=== PATIENT | female | born 1995 | race Two or more races ===

== ENCOUNTER 2017-01-31 10:41 | Emergency (ER) | payer OTHER ==
[~2017-01-31] VITALS: Ht 167.6 cm; Wt 78.6 kg
[2017-01-31] MEDS ORDERED: SODIUM CHLORIDE 0.9% 1,000 ML IV ONE (11:05)
[2017-01-31 11:30] LABS: HEMATOCRIT 43.2 % (34.6-47.8); HEMOGLOBIN 14.6 g/dL (11.7-16.4); WHITE BLOOD COUNT 9.1 x10^3/uL (3.4-10)
[2017-01-31] MEDS ORDERED: SODIUM CHLORIDE FLUSH 10ML SYR IVF ONE (11:30)
[2017-01-31] MEDS ORDERED: SODIUM CHLORIDE 0.9% 1,000ML IVBOLUS ONE (11:30)
[2017-01-31 11:40] LABS: DAU SCREEN DISCLAIMER
[2017-01-31 11:41] LABS: BLOOD UREA NITROGEN 11 mg/dL (7-18)
[2017-01-31 11:57] VITALS: BP 138/86
[2017-01-31] MEDS ORDERED: PALI273S INJ (12:42)
[2017-01-31] MEDS ORDERED: BENZ2AMP4 INJ (12:42)
[2017-01-31] MEDS ORDERED: HALO5VIA2 INJ (12:43)
[2017-01-31] MEDS ORDERED: DIVA250T4 PO (12:43)
== END 2017-01-31 15:12 | disposition home or self-care (01) ==
LOC: ED 12:36
DX: F29 Unspecified psychosis not due to a substance or known physiological condition (principal); F20.9 Schizophrenia, unspecified; F19.10 Other psychoactive substance abuse, uncomplicated
CPT/HCPCS: 36415; 80048; 80307; 81001; 82040; 84703; 85025; 87077; 87086; 87186; 96360; 96361; 99285; J7030; G0479

== ENCOUNTER 2019-01-24 09:28 | Emergency (ER) | payer OTHER, MEDICAID ==
[~2019-01-24] VITALS: Ht 170.2 cm; Wt 100.0 kg
[~2019-01-24 09:28] MED LIST: BENZ2AMP4 INJ; DIVA250T4 PO; HALO5VIA2 INJ; PALI273S INJ
--- NOTE | 2019-01-24 09:35 | NUR ---
THIS IS A 23 YEAR OLD FEMALE WHO WAS BIB BY AMBULANCE FROM [facility] FOR FOR MEDICAL CLEARANCE. PT WAS A [facility] YESTERDAY ED FOR SAME. PT FALLS ON FLOOR AND HITS SELF IN HEAD. MULTIPLE BRUISES AND SCABS ON FACE. PT ALERT WILL NO SPEAK. MENTAL HEALTH ASSISTANE AT BS FROM [facility].
--- NOTE | 2019-01-24 09:37 | NUR ---
PT PLACED IN 4 POINT LEATHER RESTRAINTS DUE TO HITTING SELF AND ATTEMPTING TO FALL ON FLOOR.
--- NOTE | 2019-01-24 10:28 | NUR ---
PT TO CT SCAN WITH 4 ASSIST PT REMAINED ON BOARD, NOT ATTEMPTING TO GET OFF. PT BACK TO BED.
[2019-01-24] MEDS ORDERED: MUPIROCIN OINT 2%, 1 GM APPL. TP STA (11:07)
[2019-01-24] MEDS ORDERED: NEOSPORIN OINT. PKT 1 PACKET ONE (11:22)
--- NOTE | 2019-01-24 11:50 | NUR ---
PT MEDICALLY CLEARED, AWAITING MD AUTHORIZATION TO TAKE BACK PATIENT AT [facility]. PT TOOK SIPS OF WATER FOR THIS RN.
[2019-01-24 11:51] VITALS: BP 114/67
--- NOTE | 2019-01-24 11:55 | NUR ---
TP RN: pt accepted by MD Cordon at [facility], packet faxed to [facility] for transport
--- NOTE | 2019-01-24 12:16 | NUR ---
TP RN: AUDIE called & info provided for authorization for transport back to [facility], [facility] has already been notified. Awaiting call back from [facility] w/ ETA for transport. Pt has been accepted back to [facility] by MD Cordon
--- NOTE | 2019-01-24 12:41 | NUR ---
PT SLEEPING, RESP EVEN AND UNLABORED. MENTAL HEALTH ASSISTANCE AT BS
--- NOTE | 2019-01-24 13:21 | NUR ---
RECEIVED A CALL FROM [facility] FROM A DEEPTI, SHE STATES SHE DENIES PATIENT COMING BACK TO [facility]. EXPLAINED THAT THROUGHPUT RECEIVED ACCEPTING MD, AND REPORT GIVEN. SHE STATES, "THIS SOUNDS LIKE [facility]" AND HUNG UP ON THIS RN. EXPLAINED TO 3D ARTIST OF ABOVE
--- NOTE | 2019-01-24 13:32 | NUR ---
LATE ENTRY: 1115 REPORT GIVEN TO SIMA TATUM, PLAN OF CARE DISCUSSED. SHE STATES, "DONT SEND PATIENT UNTIL I GET A MD".
== END 2019-01-24 13:23 ==
LOC: ED 10:47
DX: S00.01XA Abrasion of scalp, initial encounter (principal); S00.81XA Abrasion of other part of head, initial encounter; S40.212A Abrasion of left shoulder, initial encounter; F98.4 Stereotyped movement disorders; X58.XXXA Exposure to other specified factors, initial encounter; Y93.89 Activity, other specified; Y92.89 Other specified places as the place of occurrence of the external cause; Y99.8 Other external cause status
CPT/HCPCS: 70450; 99285

== ENCOUNTER 2019-11-28 05:11 | Emergency (ER) | payer OTHER, MEDICAID ==
[~2019-11-28] VITALS: Ht 172.7 cm; Wt 90.8 kg
--- NOTE | 2019-11-28 06:15 | NUR ---
PT SLEEPING IN NO ACUTE DISTRESS, EVEN UNLABORED RESPIRATIONS. FALL PRECAUTIONS IN PLACE.
[2019-11-28 06:33] LABS: BASOPHILS # (AUTO) 0.07 x10^3/uL (0-0.1); BASOPHILS % (AUTO) 1 % (0-1); EOSINOPHILS # (AUTO) 0.01 x10^3/uL (0-0.4); EOSINOPHILS % (AUTO) 0 % (1-7); LYMPHOCYTES # (AUTO) 1.66 x10^3/uL (1-3.4); LYMPHOCYTES % (AUTO) 12 % (22-44); MD NO; MEAN CORPUSCULAR HEMOGLOBIN 30.1 pg (27.0-34.8); MEAN CORPUSCULAR HGB CONC 32.8 g/dL (32.4-35.8); MEAN PLATELET VOLUME 8.2 fL (7.4-10.4); MONOCYTES % (AUTO) 6 % (2-9); NEUTROPHILS # (AUTO) 11.62 x10^3/uL (1.8-6.8); NEUTROPHILS % (AUTO) 82 % (42-75); PLATELET COUNT 256 x10^3/uL (130-400); RED BLOOD COUNT 4.36 x10^6/uL (3.82-5.3); RED CELL DISTRIBUTION WIDTH 13.8 % (9.6-15.2)
[2019-11-28 06:39] VITALS: BP 128/72
[2019-11-28 06:42] LABS: ALANINE AMINOTRANSFERASE 64 U/L (12-78); ALBUMIN 3.5 g/dL (3.4-5.0); ANION GAP 7 mmol/L (5-15); CALCIUM 8.5 mg/dL (8.5-10.1); CHLORIDE 106 mmol/L (98-107); CREATININE 0.73 mg/dL (0.55-1.02); SALICYLATE LEVEL < 1.7 mg/dL (2.8-20.0)
[2019-11-28 06:46] LABS: ALKALINE PHOSPHATASE 90 U/L (45-117)
--- NOTE | 2019-11-28 06:51 | NUR ---
RECEIVED REPORT FROM CORNEL
[2019-11-28] MEDS ORDERED: HALOPERIDOL 5 MG/ML ONE (06:58)
--- NOTE | 2019-11-28 07:02 | NUR ---
PT CAME OUT OF ROOM YELLING (NOT AT ANYONE SPECIFICALLY), IS NOT ABLE TO FOLLOW COMMANDS OF STAFF, SECURITY CALLED TO ASSIST PT BACK TO [facility], PT GOT BACK ON [facility] ON OWN ACCORD & IS LAYING WITH EYES CLOSED, PT MEDICATED PER EMAR BUT KEEPS REMOVING PULSE OX & BP CUFF SO UNABLE TO OBTAIN UPDATED VS, NO NEEDS AT THIS TIME, CALL LIGHT WITHIN REACH.
[2019-11-28] MEDS ORDERED: HALOPERIDOL 5 MG/ML IM PRN (07:30)
--- NOTE | 2019-11-28 08:27 | NUR ---
Pt eloped through ambulance bay. Pt dressed with steady gait. Outside doors pt seen running away. Not on hold and pt not stopped by this RN after earlier aggressive behavior noted.
== END 2019-11-28 09:20 | disposition left against medical advice (07) ==
LOC: ED 09:09
DX: F15.10 Other stimulant abuse, uncomplicated (principal); F41.9 Anxiety disorder, unspecified
CPT/HCPCS: 36415; 80053; 80307; 84703; 85025; 96372; 99283; J1630

== ENCOUNTER 2020-01-20 23:46 | Emergency (ER) | payer OTHER, MEDICAID ==
[~2020-01-20] VITALS: Ht 177.8 cm; Wt 110.0 kg
--- NOTE | 2020-01-20 23:49 | NUR ---
tech. went into room to do ekg on arrival patient verbal consented to ekg. when stickers were placed on pt. they became aggitated and agressive and pt. ultimately refused EKG.
--- NOTE | 2020-01-21 | NUR ---
ALTERED MENTAL STATUS. 24 YEAR OLD FEMALE TO ED VIA [facility] FOR ALTERED MENTAL STATUS. SHE WAS F[place]ING [place] [address] BY [employer]. SHE STATES SHE WAS EXERCISING. 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 SHE WAS GIVEN VERSED IN ROUTE. CURRENTLY, SHE DENIES AND COMPLAINTS. SHE IS DOING ABDOMINAL EXERCISES IN THE STRETCHER BUT DENIES SUICIDAL OR HOMICIDAL IDEATION. SHE DOES NOT DISPLAY AND AGGRESSIVE BEHAVIOR CURRENTLY.
[2020-01-21 00:02] VITALS: BP 144/79
[2020-01-21] MEDS ORDERED: LORazepam 2 MG/ML, 1ML IVPush ONE (00:30)
[2020-01-21] MEDS ORDERED: SODIUM CHLORIDE 0.9% 1,000ML IVBOLUS ONE (00:30)
--- NOTE | 2020-01-21 00:30 | NUR ---
PATIENT PULLED IV OUT. SHE IS REFUSING IV REINSERTION AND FLUIDS. MD AWARE. WE WILL REASSESS AFTER LABS- PER MD. PATIENT IS EXPRESSING THE DESIRE TO LEAVE. ATTEMPTING TO FIND FAMILY MEMBER TO DISCHARGE TO.
[2020-01-21 00:49] LABS: BASOPHILS # (AUTO) 0.05 x10^3/uL (0-0.1); BASOPHILS % (AUTO) 0 % (0-1); EOSINOPHILS % (AUTO) 0 % (1-7); LYMPHOCYTES # (AUTO) 2.23 x10^3/uL (1-3.4); LYMPHOCYTES % (AUTO) 20 % (22-44); MD NO; MEAN CORPUSCULAR HEMOGLOBIN 30.4 pg (27.0-34.8); MEAN CORPUSCULAR HGB CONC 33.6 g/dL (32.4-35.8); MEAN CORPUSCULAR VOLUME 90.5 fL (80-100); MEAN PLATELET VOLUME 7.9 fL (7.4-10.4); MONOCYTES # (AUTO) 0.73 x10^3/uL (0.2-0.8); MONOCYTES % (AUTO) 7 % (2-9); NEUTROPHILS # (AUTO) 8.25 x10^3/uL (1.8-6.8); NEUTROPHILS % (AUTO) 73 % (42-75); PLATELET COUNT 320 x10^3/uL (130-400); RED BLOOD COUNT 4.72 x10^6/uL (3.82-5.3); RED CELL DISTRIBUTION WIDTH 13.1 % (9.6-15.2)
[2020-01-21 00:54] LABS: ALBUMIN 3.7 g/dL (3.4-5.0); ANION GAP 12 mmol/L (5-15); CALCIUM 9.2 mg/dL (8.5-10.1); CHLORIDE 108 mmol/L (98-107)
[2020-01-21 00:59] LABS: CREATINE KINASE, TOTAL 123 U/L (26-192); CREATININE 1.01 mg/dL (0.55-1.02)
[2020-01-21 01:00] LABS: SALICYLATE LEVEL 3.5 mg/dL (2.8-20.0)
--- NOTE | 2020-01-21 01:00 | NUR ---
PATIENT DOING PUSHUPS. SHE IS IN NO APPARENT DISTRESS AND NONCOMBATIVE. SHE IS REQUESTING DISCHARGE. ATTEMPTING TO CONTACT FAMILY.
--- NOTE | 2020-01-21 02:05 | NUR ---
PATIENT WAS SEEN BY STAFF AMBULATING OUT OF ED. NOTIFIED THAT PATIENT ELOPED.
== END 2020-01-21 04:09 | disposition left against medical advice (07) ==
LOC: ED 01-21 03:30
DX: F15.129 Other stimulant abuse with intoxication, unspecified (principal); G92 Toxic encephalopathy; F17.210 Nicotine dependence, cigarettes, uncomplicated
CPT/HCPCS: 36415; 80048; 80307; 82040; 82550; 84703; 85025; 99283; 99406

== ENCOUNTER 2020-02-01 17:30 | Inpatient (IN) | payer OTHER, MEDICAID ==
[~2020-02-01] VITALS: Ht 162.6 cm; Wt 104.1 kg
[2020-02-01] MEDS ORDERED: PLEASE ENTER HEIGHT AND WEIGHT MC SCH (18:00)
[2020-02-01] MEDS ORDERED: POLYETHYLENE GLYCOL 17 GM PACKET PO PRN (18:00)
[2020-02-01] MEDS ORDERED: ONDANSETRON ODT 4 MG PO PRN (18:00)
[2020-02-01] MEDS ORDERED: ACETAMINOPHEN 325 MG TABLET PO PRN (18:00)
[2020-02-01] MEDS ORDERED: DOCUSATE 100 MG CAPSULE PO PRN (18:00)
[2020-02-01] MEDS ORDERED: BISACODYL 10 MG SUPP PR PRN (18:00)
[2020-02-01 19:09] VITALS: BP 113/66
[2020-02-01 20:35] VITALS: BP 112/79
[2020-02-01 23:56] LABS: MICROSCOPIC NOT IND
[2020-02-02] MEDS ORDERED: NICOTINE 21 MG/24 HR PATCH.TD24 TD ONE (00:30)
[2020-02-02 05:46] LABS: BASOPHILS # (AUTO) 0.04 x10^3/uL (0-0.1); BASOPHILS % (AUTO) 1 % (0-1); EOSINOPHILS # (AUTO) 0.08 x10^3/uL (0-0.4); EOSINOPHILS % (AUTO) 1 % (1-7); LYMPHOCYTES # (AUTO) 2.96 x10^3/uL (1-3.4); LYMPHOCYTES % (AUTO) 33 % (22-44); MD NO; MEAN CORPUSCULAR HEMOGLOBIN 29.8 pg (27.0-34.8); MEAN CORPUSCULAR HGB CONC 32.7 g/dL (32.4-35.8); MEAN PLATELET VOLUME 7.8 fL (7.4-10.4); MONOCYTES # (AUTO) 0.54 x10^3/uL (0.2-0.8); MONOCYTES % (AUTO) 6 % (2-9); NEUTROPHILS # (AUTO) 5.35 x10^3/uL (1.8-6.8); NEUTROPHILS % (AUTO) 60 % (42-75); PLATELET COUNT 286 x10^3/uL (130-400); RED BLOOD COUNT 4.79 x10^6/uL (3.82-5.3); RED CELL DISTRIBUTION WIDTH 13.2 % (9.6-15.2)
[2020-02-02 05:54] LABS: CHLORIDE 108 mmol/L (98-107)
[2020-02-02 06:17] LABS: ALANINE AMINOTRANSFERASE 30 U/L (12-78); ALBUMIN 3.4 g/dL (3.4-5.0); ALKALINE PHOSPHATASE 95 U/L (45-117); ANION GAP 7 mmol/L (5-15); BILIRUBIN,TOTAL 0.5 mg/dL (0.2-1.0); CALCIUM 9.2 mg/dL (8.5-10.1); CHOL/HDL RATIO 3.1; CHOLESTEROL, TOTAL 146 mg/dL (140-239); CREATININE 0.63 mg/dL (0.55-1.02); FREE T4 (FREE THYROXINE) 1.27 ng/dL (0.76-1.46); HDL CHOL % 32 % (28-40); HDL CHOLESTEROL (DIRECT) 47 mg/dL (40-60); LDL CHOLESTEROL,CALCULATED 78 mg/dL (54-169); LDL/HDL RATIO 1.7 (0.5-3.0); TOTAL PROTEIN 7.4 g/dL (6.4-8.2); TRIGLYCERIDES 103 mg/dL (50-200); VLDL CHOLESTEROL 21 mg/dL (0-25)
[2020-02-02] MEDS: NICOTINE 21 MG/24 HR PATCH.TD24 TD SCH (07:30)
[2020-02-02 07:31] VITALS: BP 111/76
[2020-02-02] MEDS ORDERED: BENZ2AMP4 PO (10:49)
[2020-02-02] MEDS ORDERED: RISP0.5T3 PO (10:50)
[2020-02-02 19:50] VITALS: BP 111/72
[2020-02-02] MEDS: BENZTROPINE 1 MG TABLET PO SCH (20:15)
[2020-02-02] MEDS: RISPERIDONE 0.5 MG TABLET PO SCH (20:15)
[2020-02-03 07:28] VITALS: BP 114/76
[2020-02-03] MEDS: RISPERIDONE 0.5 MG TABLET PO SCH (08:24)
[2020-02-03] MEDS: NICOTINE 21 MG/24 HR PATCH.TD24 TD SCH (08:25)
[2020-02-03 19:45] VITALS: BP 120/80
[2020-02-03] MEDS: BENZTROPINE 1 MG TABLET PO SCH (20:21)
[2020-02-03] MEDS: RISPERIDONE 1 MG TABLET PO SCH (20:21)
[2020-02-04 07:23] VITALS: BP 111/73
[2020-02-04] MEDS: NICOTINE 21 MG/24 HR PATCH.TD24 TD SCH (08:00)
[2020-02-04] MEDS: RISPERIDONE 1 MG TABLET PO SCH ×2 (08:20→20:27)
[2020-02-04 19:55] VITALS: BP 85/53
[2020-02-04] MEDS: BENZTROPINE 1 MG TABLET PO SCH (20:27)
[2020-02-05 07:00] VITALS: BP 106/71
[2020-02-05] MEDS: NICOTINE 21 MG/24 HR PATCH.TD24 TD SCH (08:21)
[2020-02-05] MEDS: RISPERIDONE 1 MG TABLET PO SCH ×2 (08:21→20:13)
[2020-02-05 19:00] VITALS: BP 122/80
[2020-02-05] MEDS: BENZTROPINE 1 MG TABLET PO SCH (20:13)
[2020-02-06 07:00] VITALS: BP 114/76
[2020-02-06] MEDS: RISPERIDONE 1 MG TABLET PO SCH ×2 (08:42→20:14)
[2020-02-06] MEDS: NICOTINE 21 MG/24 HR PATCH.TD24 TD SCH (08:42)
[2020-02-06] MEDS: BENZTROPINE 1 MG TABLET PO SCH (20:14)
[2020-02-06 20:15] VITALS: BP 133/87
[2020-02-07 07:00] VITALS: BP 124/84
[2020-02-07] MEDS: NICOTINE 21 MG/24 HR PATCH.TD24 TD SCH (08:19)
[2020-02-07] MEDS: RISPERIDONE 1 MG TABLET PO SCH ×2 (08:20→20:05)
[2020-02-07] MEDS: BENZTROPINE 1 MG TABLET PO SCH (20:05)
[2020-02-07 20:08] VITALS: BP 131/90
[2020-02-08 07:31] VITALS: BP 104/68
[2020-02-08] MEDS: RISPERIDONE 1 MG TABLET PO SCH (08:25)
[2020-02-08] MEDS: NICOTINE 21 MG/24 HR PATCH.TD24 TD SCH (08:25)
[2020-02-08] MEDS ORDERED: BENZ1TAB61 PO (10:38)
[2020-02-08] MEDS ORDERED: NICO-487 TD (10:38)
[2020-02-08] MEDS ORDERED: RISP1TAB45 PO (10:38)
== END 2020-02-08 11:39 | disposition home or self-care (01) | DRG 885 ==
LOC: 3E 17:51
PROVIDERS: ADMIT Psychiatry & Neurology Psychosomatic Medicine; ATTEND Psychiatry & Neurology Psychosomatic Medicine
DX: F20.0 Paranoid schizophrenia (principal); F32.9 Major depressive disorder, single episode, unspecified; Z68.39 Body mass index [BMI] 39.0-39.9, adult; E66.01 Morbid (severe) obesity due to excess calories; F17.200 Nicotine dependence, unspecified, uncomplicated; Z79.899 Other long term (current) drug therapy; Z86.711 Personal history of pulmonary embolism; S61.512A Laceration without foreign body of left wrist, initial encounter; X78.8XXA Intentional self-harm by other sharp object, initial encounter; Y93.89 Activity, other specified; Y92.89 Other specified places as the place of occurrence of the external cause; Y99.8 Other external cause status
CPT/HCPCS: 36415; 71045; 80053; 80061; 81003; 84439; 84443; 85025; 93005; Q0162

== ENCOUNTER 2020-06-29 05:17 | Emergency (ER) | payer OTHER, MEDICAID ==
[~2020-06-29] VITALS: Ht 160 cm; Wt 110.0 kg
[~2020-06-29 05:17] MED LIST changes: +BENZ1TAB61 PO; +BENZ2AMP4 PO; +NICO-587 TD; +RISP0.5T62 PO; +RISP1TAB45 PO
[2020-06-29 05:20] VITALS: BP 127/80
[2020-06-29] MEDS ORDERED: IBUPROFEN 600 MG TABLET ONE (05:43)
--- NOTE | 2020-06-29 05:46 | NUR ---
Medicated per order. Pt tolerated pill of motrin and water with no problems.
[2020-06-29] MEDS ORDERED: IBUPROFEN 600 MG TABLET PO ONE (06:00)
== END 2020-06-29 06:06 | disposition home or self-care (01) ==
LOC: ED 06:00
DX: J06.9 Acute upper respiratory infection, unspecified (principal); Z20.822 Contact with and (suspected) exposure to COVID-19; F17.200 Nicotine dependence, unspecified, uncomplicated
CPT/HCPCS: 87081; 87147; 87635; 87880; 99283